=== PATIENT | male | born 1950 | race Caucasian/White ===

== ENCOUNTER 2019-10-19 02:29 | Emergency (ER) | payer MEDICARE ==
[~2019-10-19] VITALS: Ht 180.3 cm; Wt 106.8 kg
[~2019-10-19 02:29] MED LIST: CARDIZEM CD 30300 MG PO; ELIQUIS 5MG PO; GLUCOPHAGE XR500 M1 PO; JANUVIA 100MG100 MG PO; LIPITOR 80MG80 MG PO; LOTENSIN20 MG PO; PROTONIX 40MG T40 MG PO; ZANTAC 150MG T150 MG PO; ZOCOR 10MG10 MG PO; ZYRTEC 10MG10 MG PO
[2019-10-19] MEDS ORDERED: CEPHALEXIN500 M1 PO (03:47)
[2019-10-19] MEDS ORDERED: ASPIRIN 81M81 MG/TA2 PO (03:51)
[2019-10-19] MEDS ORDERED: MULTI VITAMINS1 TAB PO (03:53)
[2019-10-19] MEDS ORDERED: FLONASEALLERGY NS (03:54)
[2019-10-19] MEDS ORDERED: FARXIGA5 PO (03:55)
[2019-10-19 04:28] VITALS: BP 138/71; PULSE 84; TEMP 97.7
== END 2019-10-19 04:28 | disposition home or self-care (01) ==
LOC: COL.ER 02:29
DX: S09.90XA Unspecified injury of head, initial encounter (principal); S01.81XA Laceration without foreign body of other part of head, initial encounter; I10 Essential (primary) hypertension; I48.91 Unspecified atrial fibrillation; E11.9 Type 2 diabetes mellitus without complications; E78.5 Hyperlipidemia, unspecified; Z23 Encounter for immunization; Z79.01 Long term (current) use of anticoagulants; Z79.82 Long term (current) use of aspirin; Z79.84 Long term (current) use of oral hypoglycemic drugs; Z86.73 Personal history of transient ischemic attack (TIA), and cerebral infarction without residual deficits; W06.XXXA Fall from bed, initial encounter; Y92.009 Unspecified place in unspecified non-institutional (private) residence as the place of occurrence of the external cause

== ENCOUNTER → 2019-10-26 | Outpatient (CLI) | payer MEDICARE ==
[~2019-10-26] MED LIST changes: +ASPIRIN 81M81 MG/TA2 PO; +CEPHALEXIN500 M1 PO; +FARXIGA5 PO; +FLONASEALLERGY NS; +MULTI VITAMINS1 TAB PO
[2019-10-26 11:14] VITALS: BP 122/66; PULSE 82; TEMP 98.6
== END ==
LOC: COL.ER 11:03
DX: S01.112D Laceration without foreign body of left eyelid and periocular area, subsequent encounter (principal); X58.XXXD Exposure to other specified factors, subsequent encounter

== ENCOUNTER 2020-06-16 14:15 | Emergency (ER) | payer MEDICARE ==
[~2020-06-16] VITALS: Ht 177.8 cm; Wt 105.5 kg
[~2020-06-16 14:15] MED LIST changes: +HCTZ 25MG TAB25 MG PO; +MULTAQ400 MG PO
[2020-06-16 14:19] VITALS: TEMP 97.9
[2020-06-16] MEDS ORDERED: LOTENSIN20 MG PO (14:31)
[2020-06-16 14:51] LABS: BASO % 0.2 % (0.0-2.0); EOS # 0.1 (0.0-0.7); EOS % 0.9 % (0-4.0); GRAN # 9.6 (1.4-6.5); GRAN % 73.6 % (42.2-75.2); HEMATOCRIT 50.7 % (42.0-52.0); HEMOGLOBIN 16.8 g/dl (13.5-18.0); LYMPH # 2.3 (1.2-3.4); LYMPH % 17.3 % (20.0-51.0); MEAN CELL VOLUME 91 fl (80.0-100.0); MEAN CORPUSCULAR HEMOGLOBIN 30 pg (27.0-31.0); MEAN CORPUSCULAR HGB CONC 33 g/dl (33.0-37.0); MEAN PLATELET VOLUME 10.1 fl (7.4-10.4); MONO % 7.6 % (1.7-9.3); PLATELET COUNT 255 K/mm3 (130-400); RED BLOOD COUNT 5.57 M/mm3 (4.20-5.60); REDCELL DISTRIBUTION WIDTH-CV 13.1 % (11.5-14.5)
[2020-06-16 14:59] LABS: ALANINE AMINOTRANSFERASE 26 U/L (4-49); ALBUMIN 4.4 gm/dL (3.5-5.0); ALKALINE PHOSPHATASE 96 U/L (50-136); ANION GAP 11 mmol/L (7-16); AST,SGOT 42 U/L (15-37); BILIRUBIN,TOTAL 0.6 mg/dL (0.0-1.0); BLOOD UREA NITROGEN 19 mg/dL (9-20); CALCIUM 9.5 mg/dL (8.4-10.2); CARBON DIOXIDE 25 mmol/L (22-30); CHLORIDE 103 mmol/L (98-107); CREATININE, serum 1.12 (0.66-1.25); GLUCOSE 214 mg/dL (74-106); POTASSIUM 4.9 mmol/L (3.4-5.0); SODIUM 139 mmol/L (137-145); TOTAL PROTEIN 7.6 gm/dL (6.4-8.2)
[2020-06-16 15:15] LABS: TROPONIN-I < 0.012 ng/mL (0.000-0.035)
[2020-06-16 16:30] LABS: COLLECTION METHOD CLEAN CATCH
[2020-06-16 16:35] LABS: PH 5 (5-8); SQUAMOUS EPITHELIAL None Seen /hpf; URINE APPEARANCE Clear; URINE BACTERIA None Seen /hpf; URINE BILIRUBIN Negative (NEGATIVE); URINE BLOOD Negative (NEGATIVE); URINE COLOR Yellow; URINE GLUCOSE 3+ (NEGATIVE); URINE KETONE Negative (NEGATIVE); URINE LEUKOCYTE ESTERASE Negative (NEGATIVE); URINE NITRATE Negative (NEGATIVE); URINE PROTEIN(semi-quant) Negative (NEGATIVE); URINE RBC 0-2 /hpf; URINE UROBILINOGEN Negative (NEGATIVE)
[2020-06-16 16:58] VITALS: BP 119/70; PULSE 82
== END 2020-06-16 16:59 | disposition home or self-care (01) ==
LOC: COL.ER 14:15
PROVIDERS: Emergency Medicine
DX: R00.2 Palpitations (principal); Z79.82 Long term (current) use of aspirin; Z79.51 Long term (current) use of inhaled steroids
CPT/HCPCS: J0153; J2704; J7040

== ENCOUNTER 2020-08-27 13:39 | Emergency (ER) | payer MEDICARE ==
[~2020-08-27] VITALS: Ht 180.3 cm; Wt 105.9 kg
[2020-08-27 14:33] LABS: BASO % 0.3 % (0.0-2.0); EOS # 0.1 (0.0-0.7); EOS % 0.6 % (0-4.0); GRAN # 4.8 (1.4-6.5); GRAN % 61.3 % (42.2-75.2); HEMATOCRIT 51.2 % (42.0-52.0); HEMOGLOBIN 16.7 g/dl (13.5-18.0); LYMPH # 1.7 (1.2-3.4); LYMPH % 22.2 % (20.0-51.0); MEAN CELL VOLUME 91 fl (80.0-100.0); MEAN CORPUSCULAR HEMOGLOBIN 30 pg (27.0-31.0); MEAN CORPUSCULAR HGB CONC 33 g/dl (33.0-37.0); MEAN PLATELET VOLUME 9.4 fl (7.4-10.4); MONO # 1.2 (0.1-0.6); MONO % 15.2 % (1.7-9.3); PLATELET COUNT 241 K/mm3 (130-400); RED BLOOD COUNT 5.65 M/mm3 (4.20-5.60); REDCELL DISTRIBUTION WIDTH-CV 13.3 % (11.5-14.5)
[2020-08-27 14:58] LABS: ALBUMIN 4.5 gm/dL (3.5-5.0); BILIRUBIN,TOTAL 0.6 mg/dL (0.0-1.0); CALCIUM 9.2 mg/dL (8.4-10.2); CREATININE, serum 1.27 (0.66-1.25); MAGNESIUM 1.7 mg/dL (1.6-2.3); POTASSIUM 5.1 mmol/L (3.4-5.0); TOTAL PROTEIN 7.8 gm/dL (6.4-8.2)
[2020-08-27 15:00] LABS: INR 1.3 (0.8-3.0); PROTHROMBIN TIME 14.8 SECONDS (9.7-12.8)
[2020-08-27 15:03] LABS: PARTIAL THROMBOPLASTIN TIME 32.1 SECONDS (26.0-37.0)
[2020-08-27 15:28] LABS: THYROID STIMULATING HORMONE 0.739 uIU/mL (0.465-4.680)
[2020-08-27 16:22] LABS: TROPONIN-I < 0.012 ng/mL (0.000-0.035)
[2020-08-27 18:22] VITALS: BP 125/82; PULSE 88; TEMP 98.3
== END 2020-08-27 18:05 | disposition home or self-care (01) ==
LOC: COL.ER 13:39
PROVIDERS: Emergency Medicine
DX: I48.92 Unspecified atrial flutter (principal); I48.91 Unspecified atrial fibrillation; E11.9 Type 2 diabetes mellitus without complications; E78.5 Hyperlipidemia, unspecified; Z86.73 Personal history of transient ischemic attack (TIA), and cerebral infarction without residual deficits; Z88.0 Allergy status to penicillin; Z88.1 Allergy status to other antibiotic agents; Z88.6 Allergy status to analgesic agent; Z79.84 Long term (current) use of oral hypoglycemic drugs; Z79.01 Long term (current) use of anticoagulants; Z79.82 Long term (current) use of aspirin
CPT/HCPCS: J2704; J7030

== ENCOUNTER 2022-03-27 12:58 | Outpatient (CLI) | payer MEDICARE ==
[~2022-03-27] VITALS: Ht 180.3 cm; Wt 96.0 kg
[2022-03-27 13:35] VITALS: BP 114/48; PULSE 79; TEMP 98.8
[2022-03-27 13:45] VITALS: BP 114/54; PULSE 74
[2022-03-27 14:00] VITALS: BP 108/53; PULSE 77
[2022-03-27] MEDS ORDERED: ZYRTEC5 MG PO (14:14)
[2022-03-27] MEDS ORDERED: DIAMOX 250MG250 MG PO (14:14)
[2022-03-27] MEDS ORDERED: VITAMIN D31000 IU PO (14:14)
[2022-03-27 14:15] VITALS: BP 110/45; PULSE 75
[2022-03-27] MEDS ORDERED: TAMBOCOR 1100 MG/TAB PO (14:15)
[2022-03-27] MEDS ORDERED: REVATIO20 MG PO (14:16)
[2022-03-27 14:30] VITALS: BP 108/57; PULSE 69
[2022-03-27 14:45] VITALS: BP 124/39; PULSE 68; TEMP 98.5
== END 2022-03-27 15:03 | disposition home or self-care (01) ==
LOC: EUO 12:58
DX: U07.1 COVID-19 (principal); E11.9 Type 2 diabetes mellitus without complications
CPT/HCPCS: M0222; Q0222